=== PATIENT | male | born 1945 | race Caucasian/White ===

== ENCOUNTER 2019-01-29 14:04 | Emergency (ER) | payer MEDICARE ==
--- NOTE | 2019-01-29 14:25 | ER Document Report ---
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 Reports he had labs drawn last week. Reports his WBCs were less than 1. They wanted him to go to [place] but they are unable to get there. He reports he has had some nausea for the past couple weeks. Also been taking phylactic Tamiflu for the past 2 weeks. Also r eports headache that comes and goes usually takes Tylenol and it takes care of the headache. Denies fever vomiting diarrhea. Patient has the name of his provider with him. reports that they want his provider called to discuss treatment. I have greeted and performed a rapid initial assessment of this patient. A comprehensive ED assessment and evaluation of the patient, analysis of test results and completion of the medical decision making process will be conducted by additional ED providers. TRAVEL OUTSIDE OF THE [place] IN LAST 30 DAYS: No - Related Data Allergies/Adverse Reactions: oxycodone [From Percocet] Adverse Reaction (Intermediate, Verified 01/29/19 14:23) ams Past Medical History - Past Medical History Cardiac Medical History: Reports: Hx Coronary Artery Disease, Hx Hypercholesterolemia, Hx Hypertension Denies: Hx Heart Attack Pulmonary Medical History: Reports: Hx COPD - HYPER SENSITIVE PULMONARY FIBROSIS Denies: Hx Asthma, Hx Bronchitis, Hx Pneumonia Neurological Medical History: Denies: Hx Cerebrovascular Accident, Hx Seizures Endocrine Medical History: Reports: Hx Diabetes Mellitus Type 2 Musculoskeltal Medical History: Reports Hx Arthritis - GENERALIZED Psychiatric Medical History: Reports: Hx Anxiety Denies: Hx Depression - Immunizations Hx Diphtheria, Pertussis, Tetanus Vaccination: Yes Physical Exam - Vital signs Vitals: Temp Pulse Resp BP Pulse Ox 97.6 F 72 20 168/76 H 100 01/29/19 14:08 01/29/19 14:08 01/29/19 14:08 01/29/19 14:08 01/29/19 14:08 Course - Vital Signs Vital signs: Temp Pulse Resp BP Pulse Ox 97.6 F 72 20 168/76 H 100 01/29/19 14:08 01/29/19 14:08 01/29/19 14:08 01/29/19 14:08 01/29/19 14:08 Doctor's Discharge - Discharge Referrals: LUBA LAWSON MD [Primary Care Provider] - Follow up as needed
--- NOTE | 2019-01-29 14:47 | ER Document Report ---
ED General - General Chief Complaint: Abnormal Lab Results Stated Complaint: ABNORMAL LABS Time Seen by Provider: 01/29/19 14:18 Primary Care Provider: LUBA LAWSON MD [Primary Care Provider] - Follow up as needed Mode of Arrival: Ambulatory TRAVEL OUTSIDE OF THE [place] IN LAST 30 DAYS: No - HPI Notes: 73M reports h/o lung transplant Feb 2018 after daughter at [place] called him re: labs drawn last week show [WBC] < 1 and asked he be seen at [facility]. they are unable to get there, so have presented to our ED. +nausea for the past couple weeks. "on Tamiflu for the past 2 wks". + intermittent RAZO amenable to Tylenol. (-) f/c/s/v/d. - Related Data Allergies/Adverse Reactions: oxycodone [From Percocet] Adverse Reaction (Intermediate, Verified 01/29/19 14:23) ams Past Medical History - General Information source: Patient, Relative - Social History Smoking Status: Never Smoker Chew tobacco use (# tins/day): No Frequency of alcohol use: None Family History: Reviewed & Not Pertinent, Malignancy Patient has suicidal ideation: No Patient has homicidal ideation: No - Past Medical History Cardiac Medical History: Reports: Hx Coronary Artery Disease, Hx Hypercholesterolemia, Hx Hypertension Denies: Hx Heart Attack Pulmonary Medical History: Reports: Hx COPD - HYPER SENSITIVE PULMONARY FIBROSIS Denies: Hx Asthma, Hx Bronchitis, Hx Pneumonia Neurological Medical History: Denies: Hx Cerebrovascular Accident, Hx Seizures Endocrine Medical History: Reports: Hx Diabetes Mellitus Type 2 Musculoskeletal Medical History: Reports Hx Arthritis - GENERALIZED Psychiatric Medical History: Reports: Hx Anxiety Denies: Hx Depression - Immunizations Hx Diphtheria, Pertussis, Tetanus Vaccination: Yes Hx Pneumococcal Vaccination: 02/06/11 Review of Systems - Review of Systems Constitutional: See HPI, Malaise. denies: Chills, Diaphoresis, Fever, Weakness, Weight gain, Weight loss, Recent illness EENT: No symptoms reported Cardiovascular: No symptoms reported Respiratory: No symptoms reported Gastrointestinal: No symptoms reported Genitourinary: No symptoms reported Male Genitourinary: No symptoms reported Musculoskeletal: No symptoms reported Skin: No symptoms reported Hematologic/Lymphatic: No symptoms reported Neurological/Psychological: No symptoms reported Physical Exam - Vital signs Vitals: Temp Pulse Resp BP Pulse Ox 97.6 F 72 20 168/76 H 100 01/29/19 14:08 12/24/19 14:08 01/29/19 14:08 01/29/19 14:08 01/29/19 14:08 Interpretation: Normal - General General appearance: Appears well, Alert - HEENT Head: Normocephalic, Atraumatic Eyes: Normal Pupils: PERRL - Respiratory Respiratory status: No respiratory distress Chest status: Nontender Breath sounds: Normal Chest palpation: Normal - Cardiovascular Rhythm: Regular Heart sounds: Normal auscultation Murmur: No - Abdominal Inspection: Normal Distension: No distension Bowel sounds: Normal Tenderness: Nontender Organomegaly: No organomegaly - Back Back: Normal, Nontender - Extremities General upper extremity: Normal inspection, Nontender, Normal color, Normal ROM, Normal temperature General lower extremity: Normal inspection, Nontender, Normal color, Normal ROM, Normal temperature, Normal weight bearing. No: Selma's sign - Neurological Neuro grossly intact: Yes Cognition: Normal Orientation: AAOx4 Marcio Coma Scale Eye Opening: Spontaneous [place] Coma Scale Verbal: Oriented [place] Coma Scale Motor: Obeys Commands Marcio Coma Scale Total: 15 Speech: Normal Motor strength normal: LUE, RUE, LLE, RLE Sensory: Normal - Psychological Associated symptoms: Normal affect, Normal mood - Skin Skin Temperature: Warm Skin Moisture: Dry Skin Color: Normal Course - Re-evaluation Re-evalutation: i reviewed all labs that we repeated here today in his ED eval I spoke with your nurse coordinator and then Dr. Burns himself regarding your labs today that actually show a trend up and your absolute neutrophil count to 1.7. They give Neupogen only when your ANC count is less than 1.4. He said he would still like you to keep the lab appointment on to continue to trend how you are doing. - Vital Signs Vital signs: Temp Pulse Resp BP Pulse Ox 97.6 F 70 20 155/60 H 100 01/29/19 16:41 01/29/19 16:41 01/29/19 16:41 01/29/19 16:41 01/29/19 16:41 - Laboratory Result Diagrams: 01/29/19 14:45 01/29/19 14:45 Laboratory results interpreted by me: 01/29/19 01/29/19 14:45 14:45 WBC 1.7 L RBC 2.49 L Hgb 8.7 L Hct 24.3 L MCV 98 H MCH 34.7 H RDW 16.4 H Band Neutrophils % 8 H Abs Neuts (Manual) 1.4 L Abs Lymphs (Manual) 0.2 L Sodium 136.7 L Potassium 5.7 H BUN 60 H Creatinine 2.49 H Est GFR ( Amer) 31 L Est GFR (MDRD) Non-Af 25 L Glucose 215 H Discharge - Discharge Clinical Impression: Bone marrow suppression, Neutropenia Condition: Good Disposition: HOME, SELF-CARE Additional Instructions: I spoke with your nurse coordinator and then Dr. Burns himself regarding your labs today that actually show a trend up and your absolute neutrophil count to 1.7. They give Neupogen only when your ANC count is less than 1.4. He said he would still like you to keep the lab appointment on to continue to trend how you are doing. Otherwise continue to take your regular medications watch for any fevers chills sweats or other new changes, and enjoy the holidays. Referrals: LUBA LAWSON MD [Primary Care Provider] - Follow up as needed
[2019-01-29 15:04] LABS: HEMATOCRIT 24.3 % (37.9-51.0); HEMOGLOBIN 8.7 g/dL (13.5-17.0); MEAN CORPUSCULAR HEMOGLOBIN 34.7 pg (27.0-33.4); MEAN CORPUSCULAR HGB CONC 35.6 g/dL (32.0-36.0); MEAN CORPUSCULAR VOLUME 98 fl (80-97); PLATELET COUNT 245 10^3/uL (150-450); RED BLOOD COUNT 2.49 10^6/uL (4.35-5.55); RED CELL DISTRIBUTION WIDTH 16.4 % (11.5-14.0)
[2019-01-29 15:23] LABS: ALBUMIN 3.9 g/dL (3.5-5.0); ALKALINE PHOSPHATASE 38 U/L (38-126); ANION GAP 11 (5-19); ASPARTATE AMINO TRANSFERASE 30 U/L (17-59); BILIRUBIN,DIRECT 0.2 mg/dL (0.0-0.4); BILIRUBIN,TOTAL 0.6 mg/dL (0.2-1.3); BLOOD UREA NITROGEN 60 mg/dL (7-20); CALCIUM 9.7 mg/dL (8.4-10.2); CARBON DIOXIDE 23 mmol/L (22-30); CHLORIDE 103 mmol/L (98-107); GLUCOSE 215 mg/dL (75-110); POTASSIUM 5.7 mmol/L (3.6-5.0); TOTAL PROTEIN 7.3 g/dL (6.3-8.2)
[2019-01-29 15:31] LABS: WHITE BLOOD COUNT 1.7 10^3/uL (4.0-10.5)
[2019-01-29 15:35] LABS: ABSOLUTE LYMPHOCYTES# (MANUAL) 0.2 10^3/uL (0.5-4.7); ABSOLUTE MONOCYTES # (MANUAL) 0.1 10^3/uL (0.1-1.4); BAND NEUTROPHILS % (MANUAL) 8 % (3-5); BASOPHILS % (MANUAL) 0 % (0-2); EOSINOPHILS % (MANUAL) 0 % (0-6); LYMPHOCYTES % (MANUAL) 14 % (13-45); MONOCYTES % (MANUAL) 6 % (3-13); SEGMENTED NEUTROPHILS % (MAN) 72 % (42-78); TOTAL CELLS COUNTED 50
[2019-01-29 15:36] LABS: ANISOCYTOSIS 1+; PLATELET COMMENT ADEQUATE
[2019-01-29 16:31] LABS: APPEARANCE,URINE CLEAR; BILIRUBIN,URINE NEGATIVE (NEGATIVE); COLOR,URINE YELLOW; GLUCOSE, URINE NEGATIVE (NEGATIVE); KETONES,URINE NEGATIVE (NEGATIVE); LEUKOCYTE ESTERASE,URINE NEGATIVE (NEGATIVE); NITRITE,URINE NEGATIVE (NEGATIVE); PROTEIN,URINE NEGATIVE (NEGATIVE); UROBILINOGEN,URINE NEGATIVE mg/dL (<2.0)
[2019-01-29 16:45] VITALS: BP 155/60
== END 2019-01-29 16:41 | disposition home or self-care (01) ==
LOC: ER 14:04
DX: D75.9 Disease of blood and blood-forming organs, unspecified (principal); R79.89 Other specified abnormal findings of blood chemistry; R11.0 Nausea; R51 Headache; Z79.899 Other long term (current) drug therapy; I25.10 Atherosclerotic heart disease of native coronary artery without angina pectoris; I10 Essential (primary) hypertension; J44.9 Chronic obstructive pulmonary disease, unspecified; E11.9 Type 2 diabetes mellitus without complications
CPT/HCPCS: 36415; 80053; 81001; 85025; 99283

== ENCOUNTER → 2019-02-22 | Outpatient (CLI) | payer MEDICARE ==
[2019-02-22 11:08] LABS: HEMATOCRIT 22.9 % (37.9-51.0); MEAN CORPUSCULAR HEMOGLOBIN 33.8 pg (27.0-33.4); MEAN CORPUSCULAR HGB CONC 34.2 g/dL (32.0-36.0); MEAN CORPUSCULAR VOLUME 99 fl (80-97); PLATELET COUNT 148 10^3/uL (150-450); RED BLOOD COUNT 2.31 10^6/uL (4.35-5.55); RED CELL DISTRIBUTION WIDTH 15.8 % (11.5-14.0)
[2019-02-22 11:43] LABS: ALBUMIN 3.6 g/dL (3.5-5.0); ALKALINE PHOSPHATASE 67 U/L (38-126); ANION GAP 13 (5-19); ASPARTATE AMINO TRANSFERASE 36 U/L (17-59); BILIRUBIN,DIRECT 0.4 mg/dL (0.0-0.4); BILIRUBIN,TOTAL 0.6 mg/dL (0.2-1.3); BLOOD UREA NITROGEN 66 mg/dL (7-20); CALCIUM 8.6 mg/dL (8.4-10.2); CARBON DIOXIDE 23 mmol/L (22-30); CHLORIDE 104 mmol/L (98-107); GLUCOSE 159 mg/dL (75-110); PHOSPHORUS 3.4 mg/dL (2.5-4.5); POTASSIUM 4.5 mmol/L (3.6-5.0)
[2019-02-22 12:09] LABS: ABSOLUTE LYMPHOCYTES# (MANUAL) 0.3 10^3/uL (0.5-4.7); ABSOLUTE MONOCYTES # (MANUAL) 0.1 10^3/uL (0.1-1.4); BAND NEUTROPHILS % (MANUAL) 1 % (3-5); BASOPHILS % (MANUAL) 0 % (0-2); EOSINOPHILS % (MANUAL) 1 % (0-6); LYMPHOCYTES % (MANUAL) 7 % (13-45); MONOCYTES % (MANUAL) 3 % (3-13); SEGMENTED NEUTROPHILS % (MAN) 88 % (42-78); TOTAL CELLS COUNTED 100
[2019-02-22 12:10] LABS: ANISOCYTOSIS SLIGHT; OVALOCYTES SLIGHT; TOXIC GRANULATION SLIGHT; TOXIC VACUOLATION PRESENT
[2019-02-22 12:11] LABS: HEMOGLOBIN 7.8 g/dL (13.5-17.0); PLATELET COMMENT DECREASED; POLYCHROMASIA SLIGHT; TEAR DROP CELLS SLIGHT
== END ==
LOC: OD 09:52
PROVIDERS: ATTEND Nurse Practitioner Family
DX: Z94.2 Lung transplant status (principal); Z48.24 Encounter for aftercare following lung transplant; D70.9 Neutropenia, unspecified
CPT/HCPCS: 36415; 80053; 80197; 83735; 84100; 85025